=== PATIENT | female | born 1985 | race Caucasian/White ===

== ENCOUNTER 2016-11-17 00:49 | Emergency (ER) | payer OTHER ==
[2016-11-17 00:55] VITALS: BP 122/73; PULSE 87; TEMP 97.9
[2016-11-17] MEDS ORDERED: Sodium Chloride 0.9% 1,000 ML IV ONE (01:09)
[2016-11-17 01:45] LABS: RBC URINE < 1 /hpf (0-3); URINE BACTERIA RARE (<OCC); URINE BILIRUBIN NEGATIVE (NEGATIVE); URINE BLOOD 1+ (NEGATIVE); URINE COLOR Straw (YELLOW); URINE GLUCOSE (UA) NORMAL (Normal); URINE KETONE TRACE mg/dL (NEGATIVE); URINE LEUKOCYTE ESTERASE NEG Leu/uL (Negative); URINE PROTEIN NEGATIVE (NEGATIVE); URINE UROBILINOGEN NORMAL mg/dL (0.2-1.0); WBC URINE 1 /hpf (0-5)
[2016-11-17 01:47] LABS: BASO % 0.5 % (0.0-2.0); EOS # 0.1 K/uL (0.0-0.7); HEMATOCRIT 27.1 % (34.0-47.0); LYMPH # 1.8 K/uL (1.0-4.3); LYMPH % 16.9 % (20.0-40.0); MEAN CELL VOLUME 73.3 fL (81.0-99.0); MEAN CORPUSCULAR HGB CONC 31.4 g/dL (33.0-37.0); MEAN PLATELET VOLUME 8.5 fL (7.2-11.7); MONO # 0.9 K/uL (0.0-0.8); MONO % 8.3 % (0.0-10.0); RED CELL DISTRIBUTION WIDTH 17.3 % (11.5-14.5); WHITE BLOOD COUNT 10.6 K/uL (4.8-10.8)
[2016-11-17 01:50] LABS: CHLORIDE 97 mmol/L (98-107)
[2016-11-17 01:51] LABS: POTASSIUM 3.8 mmol/L (3.6-5.2); SODIUM 135 mmol/L (132-148)
[2016-11-17 01:53] LABS: AST/SGOT 21 U/L (14-36); BILIRUBIN,TOTAL 0.5 mg/dL (0.2-1.3); CARBON DIOXIDE 21 mmol/L (22-30); GFR AFRICAN-AMERICAN > 60
[2016-11-17 01:54] LABS: ALB/GLOB RATIO 1.2 (1.0-2.1); ALKALINE PHOSPHATASE 56 U/L (38-126); ALT/SGPT 30 U/L (9-52); BLOOD UREA NITROGEN 7 mg/dL (7-17); CALCIUM 8.9 mg/dl (8.6-10.4); GLUCOSE,RANDOM 90 mg/dL (65-105); TOTAL PROTEIN 7.3 g/dL (6.3-8.3)
--- NOTE | 2016-11-17 03:54 | C.PDOC ---
History Of Present Illness 31 year old female presents to the ED with complaints of vaginal spotting since last night. Patient is with LOP Sep 06, 2016 and eating well. Patient denies any fever, chest pain, shortness of breath. Chief Complaint (Nursing): Female Genitourinary History Per: Patient History/Exam Limitations: no limitations Onset/Duration Of Symptoms: Hrs Current Symptoms Are (Timing): Still Present Associated Symptoms: denies: Fever, Chills, Nausea, Vomiting Past Medical History Reviewed: Historical Data, Nursing Documentation, Vital Signs Vital Signs: Last Vital Signs Temp 97.9 F 11/17/16 00:52 Pulse 87 11/17/16 00:52 Resp 17 11/17/16 04:07 BP 122/73 11/17/16 00:52 Pulse Ox 99 11/17/16 04:07 Family History: States: Unknown Family Hx - Social History Hx Alcohol Use: No Hx Substance Use: No Review Of Systems Constitutional: Negative for: Fever, Chills, Sweats Respiratory: Negative for: Shortness of Breath Gastrointestinal: Negative for: Nausea, Vomiting, Diarrhea Genitourinary: Positive for: Vaginal Bleeding Physical Exam - Physical Exam Appears: Non-toxic, No Acute Distress Skin: Warm, Dry Eye(s): bilateral: PERRL, EOMI Ear(s): Bilateral: Normal Nose: Normal Oral Mucosa: Moist Tongue: Normal Appearing Lips: Normal Appearing Throat: Normal, No Erythema Neck: Normal ROM, Supple Cardiovascular: Rhythm Regular, No Murmur Respiratory: No Accessory Muscle Use, No Rales, No Rhonchi, No Stridor, No Wheezing Gastrointestinal/Abdominal: Soft, No Distention, No Guarding, No Rebound Pelvic: Other (Frontal height measured 4 cm above pubic symphosis ) Extremity: Normal ROM, No Tenderness Neurological/Psych: Oriented x3 ED Course And Treatment - Laboratory Results Result Diagrams: 11/17/16 01:40 11/17/16 01:40 O2 Sat by Pulse Oximetry: 100 (room air ) Disposition - Disposition Referrals: Justice Wallace, [Non-Staff] - Disposition: HOME/ ROUTINE Disposition Time: 03:20 Condition: GOOD Additional Instructions: Thank you for letting us take care of you today. Your provider was Dr. Gibson. You were treated for first trimester bleeding and anemia. The emergency medical care you received today was directed at your acute symptoms. If you were prescribed any medication, please fill it and take as directed. It may take several days for your symptoms to resolve. Return to the Emergency Department if your symptoms worsen, do not improve, or if you have any other problems. Please contact your doctor or call one of the physicians/clinics you have been referred to that are listed on the Patient Visit Information form that is included in your discharge packet. Bring any paperwork you were given at discharge with you along with any medications you are taking to your follow up visit. Our treatment cannot replace ongoing medical care by a primary care provider (PCP) outside of the emergency department. Thank you for allowing the [facility] team to be part of your care today. Follow up with your COMPARATOR OPERATOR doctor as scheduled in 4 days. Prescriptions: Pnv#26/Iron Poly/FA/Dha [Vitafol-One Capsule] 1 each PO DAILY #30 capsule Instructions: First Trimester Vaginal Bleed (ED) - Clinical Impression Clinical Impression: Threatened in first trimester - Scribe Statement The provider has reviewed the documentation as recorded by the Scribeusebia George All medical record entries made by the Duibeusebia were at my direction and personally dictated by me. I have reviewed the chart and agree that the record accurately reflects my personal performance of the history, physical exam, medical decision making, and the department course for this patient. I have also personally directed, reviewed, and agree with the discharge instructions and disposition.
[2016-11-17 04:08] VITALS: RESP 17
[2016-11-17 06:17] VITALS: O2SAT 100
--- NOTE | 2016-11-17 08:58 | US ---
Pelvic ultrasound History: . Vaginal spotting. Comparison: None available. Technique: Real-time sonography was performed through the pelvis utilizing transabdominal technique. Findings: Uterus: 12.6 x 6.2 x 8.5 centimeters. Anteverted. Cervix measures 3.1 centimeters. Intrauterine . Intrauterine gestational sac noted. [place]-rump length measures 6.3 centimeters corresponding to a gestational age of approximately 12 weeks and 5 days. heart rate of 154 beats per minute. No free fluid in the pelvic cul-de-sac. Anterior placental position. Right ovary: 2.8 x 1.5 x 2.7 centimeters. Normal flow. Left ovary: 3.4 x 2.4 x 2.7 centimeters. Normal flow. Hypoechoic cyst measuring 1.6 x 1.2 x 1.7 centimeters. Impression: Intrauterine corresponding to a gestational age of approximately 12 weeks and 5 days by crown-rump length of 6.3 centimeters. heart rate of 154 beats per minute. Left ovarian cyst measuring up to 1.7 centimeters. Limited 1st trimester ultrasound for viability purposes only. Continued interval followup with serial ultrasound, serial HCG levels, and gynecological consultation would be helpful if clinically indicated. These findings were preliminarily reported at 3:05 a.m. on 11/17/[address] Paolo Arndt from [facility] [employer] [facility].
== END 2016-11-17 04:07 | disposition home or self-care (01) ==
LOC: C.ER 00:49
DX: O20.0 Threatened abortion (principal); Z3A.12 12 weeks gestation of pregnancy
CPT/HCPCS: 76801; 80053; 81001; 83690; 84702; 85025; 86850; 86900; 87086; 96360; 99283; J7040